=== PATIENT | female | born 1945 | race Caucasian/White ===

== ENCOUNTER → 2016-12-22 | Outpatient (CLI) | payer MEDICARE, BC | END | disposition home or self-care (01) | LOC: PCVCCLINIC 13:33 | PROVIDERS: ATTEND Internal Medicine Cardiovascular Disease | DX: I10 Essential (primary) hypertension (principal); R07.89 Other chest pain; E78.00 Pure hypercholesterolemia, unspecified; I77.9 Disorder of arteries and arterioles, unspecified; E11.9 Type 2 diabetes mellitus without complications; R53.83 Other fatigue; R68.89 Other general symptoms and signs; R01.1 Cardiac murmur, unspecified; Z79.899 Other long term (current) drug therapy | CPT/HCPCS: 93005; G0463 ==

== ENCOUNTER → 2016-12-22 | Outpatient (CLI) | payer MEDICARE, BC ==
--- NOTE | 2016-12-22 15:52 | PCVCIMAG ---
EXAM: BILATERAL RENAL ULTRASOUND AND BILATERAL RENAL DUPLEX INDICATION: Hypertension FINDINGS: Right kidney: Length measures 9.8 cm. No hydronephrosis or extensive renal scarring. Right renal duplex: Adequate technical quality. Increased systolic velocity proximal renal artery of 371 cm/s consistent with 80% stenosis. The aortic to renal artery ratio is 2.9. The renal vein is patent. Left kidney: Length measures 10.8 cm. No hydronephrosis or extensive renal scarring. 1.1 x 1.2 x 1.7 cm probable benign cyst upper pole. Left renal duplex: Adequate technical quality. No sonographic evidence of renal artery stenosis. The aortic to renal artery ratio is 1.6. The renal vein is patent. Bladder: No obvious abnormalities. IMPRESSION: 80% stenosis proximal right renal artery. No significant left renal artery stenosis. LOC:[id number]
--- NOTE | 2016-12-22 16:08 | PCVCIMAG ---
APPROVED REPORT Study performed: 12/22/2016 16:33:33 EXAM: Comprehensive 2D, Doppler, and color-flow Echocardiogram Patient Location: Echo lab Status: routine BSA: 1.78 HR: 96 bpmBP: 130/78 mmHg Rhythm: NSR Other Information Study Quality: GoodAdequate Indications Hypertension/HDD Throat Pain. 2D Dimensions LVEF(%): 57.27 (>50%) IVSd: 12.22 (7-11mm)LVOT Diam: 18.87 (18-24mm) LVDd: 38.91 mm PWd: 10.79 (7-11mm)Ascending Ao: 26.32 (22-36mm) LVDs: 27.40 (25-40mm) Left Atrium: 32.65 (27-40mm) Aortic Root: 24.05 mm Friend's LVEF: 57.27 % Volumes Left Atrial Volume (Systole) Single Plane 4CH: 26.83 mLSingle Plane 2CH: 21.67 mL LA ESV Index: 29.00 mL/m2 Aortic Valve AoV Peak Lalito.: 1.75 m/s AO Peak Gr.: 12.26 mmHg Mitral Valve E/A Ratio: 0.8 MV Decel. Time: 202.28 ms MV E Max Lalito.: 0.78 m/s MV A Lalito.: 1.02 m/s MV PHT: 58.66 ms IVRT: 83.04 ms TDI E/Lateral E': 15.60E/Medial E': 11.14 Medial E' Lalito.: 0.07 m/s Lateral E' Lalito.: 0.05 m/s Left Ventricle The left ventricle is normal size. There is normal LV segmental wall motion. Mild to moderate concentric left ventricular hypertrophy. Left ventricular systolic function is normal. LVEF is 60-65%. The left ventricular diastolic function is normal. Right Ventricle The right ventricle is normal size. The right ventricular systolic function is normal. Atria The left atrium size is normal. The right atrium size is normal. Aortic Valve LVOT Valsalva gradient 2.2. No aortic regurgitation is present. There is no aortic valvular stenosis. Mitral Valve The mitral valve is normal in structure. There is no mitral valve regurgitation noted. No evidence of mitral valve stenosis. Tricuspid Valve The tricuspid valve is normal in structure. There is no tricuspid valve regurgitation noted. Pulmonic Valve The pulmonary valve is normal in structure. There is no pulmonic valvular regurgitation. Great Vessels The aortic root is normal in size. IVC is normal in size and collapses with >50% inspiration Pericardium There is no pericardial effusion. <Conclusion> The left ventricle is normal size. Mild to moderate concentric left ventricular hypertrophy. LVEF is 60-65%. The left ventricular diastolic function is normal. The right ventricle is normal size. The left atrium size is normal. LVOT Valsalva gradient 2.2. There is no aortic valvular stenosis. There is no mitral valve regurgitation noted. There is no mitral valve regurgitation noted. There is no tricuspid valve regurgitation noted. There is no pericardial effusion.
== END | disposition home or self-care (01) ==
LOC: PCVCIMAG 14:18
PROVIDERS: ATTEND Internal Medicine Cardiovascular Disease
DX: I10 Essential (primary) hypertension (principal); R07.89 Other chest pain; E78.00 Pure hypercholesterolemia, unspecified; I77.9 Disorder of arteries and arterioles, unspecified; E11.9 Type 2 diabetes mellitus without complications; R53.83 Other fatigue; R07.0 Pain in throat; R68.89 Other general symptoms and signs; R01.1 Cardiac murmur, unspecified; Z79.899 Other long term (current) drug therapy; Z79.84 Long term (current) use of oral hypoglycemic drugs
CPT/HCPCS: 76770; 93005; 93306; 93975; G0463

== ENCOUNTER → 2016-12-27 | Outpatient (CLI) | payer MEDICARE, BC ==
[~2016-12-27] MED LIST: ASPIRIN 325 MG TABLET ONE; CLOPIDOGREL BISULFATE 75 MG TABLET ONE; DIAZEPAM 10 MG TABLET. ONE; HEPARIN SODIUM 5,000 UNIT/ML VIAL for PCVC. ONE; HEPARIN for ARTERIAL LINE 1,500 ML ONE; IOHEXOL 300 MG/ML 100ML VIAL. ONE; IOHEXOL 350 MG/ML 100 ML VIAL. ONE; IV NORMAL SALINE 1000ML BAG 0 ML ONE; IV NORMAL SALINE 1000ML BAG 1,000 ML ONE; LIDOCAINE 1% Multi-Dose 20 ML VIAL. ONE; MIDAZOLAM HCL/PF 2 MG/2 ML VIAL. ONE; fentaNYL PF VIAL 100 MCG/2 ML VIAL ONE; hydrALAZINE 20 MG/ML VIAL. ONE
--- NOTE | 2016-12-27 14:52 | PCVCINTER ---
EXAM: 1. AORTOGRAM AND BILATERAL ILIOFEMORAL ANGIOGRAPHY 2. BILATERAL RENAL ANGIOGRAPHY INDICATION: Peripheral arterial disease. Coronary artery disease. Bilateral leg pain. Hypertension. Renal atherosclerosis. PROCEDURE: Procedure and risks of angiography intervention is appropriate including limb loss stroke and were discussed with the patient's family and consent obtained. The patient's right groin was prepped abnormal sterile fashion. IV conscious sedation was used to procedure with appropriate monitoring from 12:45 PM through 1:30 PM. Ultrasound was used to interrogate the right groin and showed the right common femoral artery to be patent. A permanent spot film was obtained. Under ultrasound guidance access into the right common femoral artery was obtained and a 5 Cymraes sheath was placed. Through this a 5 Cymraes flush catheter was placed into the abdominal aorta at the level of the renal arteries and AP aortogram was performed. Catheter was positioned at the aortic bifurcation and bilateral iliofemoral angiography performed. Catheter was exchanged for a visceral catheter was placed into the right renal arteries and right renal angiograms obtained. Catheter was placed into the the left renal arteries and left renal angiograms were obtained. Dr. Jesus joined the procedure and he performed coronary angiography. Please see his separate dictation for full details. Catheters and wires removed. Sheath was removed and hemostasis obtained using the FISH device. No immediate complications. FINDINGS: Aortogram: There is one right and one left renal artery. Minimal plaque infrarenal abdominal aorta without significant stenosis. Iliofemoral angiography: The right and left common and external iliac arteries show good patency. Both internal iliac arteries are patent. The right and left common femoral and profunda femoral arteries are patent. The right and left upper superficial femoral arteries are patent. Right renal artery: Moderate plaque proximal vessel causes only minimal stenosis. No flow-limiting stenosis. No branch vessel stenosis. Left renal artery: Minimal plaque proximal vessel does not cause significant stenosis. IMPRESSION: Minimal stenosis proximal right renal artery of less than 20%. No flow-limiting renal artery stenosis seen. No significant aortic or iliofemoral stenosis. LOC:[id number]
--- NOTE | 2016-12-27 17:34 | PCVCINTER ---
APPROVED REPORT Patient Details Patient Status: Out-Patient Room #: 4 The patient is a 71 year-old Female Event Personnel Johann Thomas RN, Solange Benitez RT(R)(), Alise Capps RT(R) Risk Factors Arterial HypertensionDysplipidemia (Type: 1), Cerebrovascular Disease, HypercholesterolemiaPhysical Activity, Diabetes (Control: Oral)Last Creatanine 0.8 Previous Procedures/Diagnoses Cerebrovascular disease, Hypertension, Diabetes Procedure Narrative The patient was brought electively to the Cardiac Catheterization Laboratory and was prepped and draped in a sterile manner. The right femoral was infiltrated with 1% Lidocaine subcutaneous anesthesia. A 6fr sheath was inserted into the right femoral artery. Coronary angiography was performed using coronary diagnostic catheters. The right coronary system was accessed and visualized with a JR4 catheter. The left coronary system was accessed and visualized with a JL4 catheter. The left ventricle was accessed and visualized with a pigtail catheter. Left ventriculogram was performed in HUGHES projection. Closure device was deployed with a 6 Fr Fish. Hemostasis was obtained with manual pressure following sheath removal without any complications. The patient tolerated the procedure well and there were no complications associated with the procedure. There was no hematoma. Hemodynamics The aortic pressure is 131/48 mmHg with a mean of 82 mmHg. The left ventricular pressure is 132/5 mmHg with a mean of 4 mmHg. Conclusion #1 normal left ventricular size and systolic function EF 60% #2 essentially normal coronary arteries and a right dominant system minimal plaquing is noted no occlusive disease Recommendations and plan continue aggressive risk factor modification. No lifting for 48 hours. No line tub Jacuzzi or Bernard for a week.
== END | disposition home or self-care (01) ==
LOC: PCVCINTER 09:50
PROVIDERS: ATTEND Internal Medicine Cardiovascular Disease
DX: I25.10 Atherosclerotic heart disease of native coronary artery without angina pectoris (principal); I73.9 Peripheral vascular disease, unspecified; I10 Essential (primary) hypertension; I70.1 Atherosclerosis of renal artery; E78.5 Hyperlipidemia, unspecified; E78.00 Pure hypercholesterolemia, unspecified; E11.9 Type 2 diabetes mellitus without complications
CPT/HCPCS: 36252; 75630; 76937; 93458; 99152; 99153; C1751; C1760; C1769; C1894; J0360; J1644; J2250; J3010; J7030; Q9967; J0690

== ENCOUNTER → 2017-06-16 | Outpatient (CLI) | payer MEDICARE, BC | END | disposition home or self-care (01) | LOC: PCVCCLINIC 13:50 | DX: I25.10 Atherosclerotic heart disease of native coronary artery without angina pectoris (principal); I10 Essential (primary) hypertension; E78.00 Pure hypercholesterolemia, unspecified; I77.9 Disorder of arteries and arterioles, unspecified; E11.8 Type 2 diabetes mellitus with unspecified complications; I70.1 Atherosclerosis of renal artery; Z79.84 Long term (current) use of oral hypoglycemic drugs; Z79.899 Other long term (current) drug therapy | CPT/HCPCS: 80061; 93005; G0463 ==

== ENCOUNTER → 2018-03-13 | Outpatient (CLI) | payer MEDICARE, BC ==
--- NOTE | 2018-03-13 15:30 | PCVCIMAG ---
APPROVED REPORT Study performed: 03/13/2018 13:09:10 Exam: Stress Echocardiogram Indication: Hypertension, Chest discomfort Patient Location: Echo lab Stress Nurse: Angela Fountain RN Status: routine Ht: 5 ft 4 in HR: 94 bpm BP: 140/80 mmHg Rhythm: NSR Medical History Medical History: HTN, Diabetes Procedure The patient underwent an Exercise Stress Test using the Koby Protocol. Blood pressure, heart rate, and EKG were monitored. An Echocardiogram was performed by correctional maintenance technician in four stages in quad fashion. At peak stress, four selected images were obtained and placed side by side with resting images for comparison. Stress Test Details Stress Test: Exercise stress testing was performed using a Koby protocol. HR Resting HR: 94 bpmMax Heart Rate (APMHR): 146 bpm Max HR Achieved: 173 bpmTarget HR (85% APMHR): 124 bpm % of APMHR: 118 Recovery HR: 86 bpm HR response to stress: Normal HR response to stress BP Resting BP: 140/80 mmHg Max BP: 168/80 mmHg Recovery BP: 158/62 mmHg BP response to stress: Normal blood pressure response to stress. ECG Resting ECG: Sinus Rhythm Stress ECG: Sinus Rhythm Recovery ECG: Sinus Rhythm Clinical Reason for Termination: Maximal effort Stress Symptoms: Chest pain Exercise duration: 6 min sec Highest Stage Achieved: Stage 2: 2.5 mph at 12% grade. Exercise capacity: 7.00 METs Overall Exercise Capacity for Age: Normal Pre-Stress Echo The resting Echocardiogram showed normal left ventricular contractility with an estimated Ejection Fraction of about 55-60%. Post-Stress Echo The stress Echocardiogram showed normal left ventricular contractility with an estimated Ejection Fraction of about 60-65%. Normal augmentation of wall motion in all segments on post stress images. Clinical No clinical or ECG evidence for ischemia. Conclusion Clinical Response: Non-ischemic Exercise Capacity: Average Stress ECG Response: Non-ischemic Stress Echo Images: Non-ischemic The left ventricle is normal in size and wall thickness in both the rest and stress images. Other Information Study Quality: Adequate <Conclusion> The left ventricle is normal in size and wall thickness in both the rest and stress images.
== END | disposition home or self-care (01) ==
LOC: PCVCIMAG 13:36
PROVIDERS: ATTEND Internal Medicine Cardiovascular Disease
DX: I25.10 Atherosclerotic heart disease of native coronary artery without angina pectoris (principal); R07.89 Other chest pain; E11.9 Type 2 diabetes mellitus without complications; I10 Essential (primary) hypertension; E78.49 Other hyperlipidemia; I87.1 Compression of vein; Z79.4 Long term (current) use of insulin
CPT/HCPCS: 36415; 80061; 93005; 93325; 93351; G0463